=== PATIENT | female | born 1990 | race Caucasian/White ===

== ENCOUNTER → 2020-05-26 | Outpatient (CLI) | payer OTHER ==
[2020-05-26 16:17] LABS: BASO % 0.5 % (0.0-1.0); EOS % 0.5 % (0.0-3.0); HEMATOCRIT 37.1 % (36.0-47.0); LYMPH # 2.1 10^3/uL (1.5-5.0); LYMPH % 27.5 % (24.0-44.0); MEAN CORPUSCULAR HEMOGLOBIN 30.4 pg (27.0-33.0); MEAN CORPUSCULAR VOLUME 86.9 fl (80.0-96.0); MONO # 0.5 10^3/uL (0.0-0.8); MONO % 6.7 % (0.0-5.0); NEUTROPHILS # 4.9 10^3/uL (1.5-8.5); NEUTROPHILS % 64.4 % (36.0-66.0); PLATELET COUNT, AUTOMATED 251 10^3/uL (150-450); RED BLOOD COUNT 4.27 10^6/uL (4.00-5.40); WHITE BLOOD COUNT 7.6 10^3/uL (4.0-10.0)
[2020-05-26 17:31] LABS: HEPATITIS C VIRUS ABY INDEX 0.2 INDEX (<0.8); HIV 1&2 SCREEN CENTAUR NEGATIVE (NEGATIVE)
== END ==
LOC: M PLALAB 13:52
PROVIDERS: ATTEND Advanced Practice Midwife
DX: Z34.01 Encounter for supervision of normal first pregnancy, first trimester (principal)

== ENCOUNTER → 2020-06-15 | Outpatient (CLI) | payer OTHER ==
[2020-06-15 17:18] LABS: INR 1.07; PROTHROMBIN TIME 14.1 SECONDS (12.5-14.3)
[2020-06-15 17:19] LABS: PARTIAL THROMBOPLASTIN TIME 31.6 SECONDS (24.2-38.5)
== END ==
LOC: M PLALAB 15:29
PROVIDERS: ATTEND Advanced Practice Midwife
DX: O26.899 Other specified pregnancy related conditions, unspecified trimester (principal); Z3A.00 Weeks of gestation of pregnancy not specified; M25.50 Pain in unspecified joint

== ENCOUNTER → 2020-07-12 | Outpatient (REF) | payer BC ==
[2020-07-12 14:17] LABS: ALBUMIN 3.3 GM/DL (3.2-5.2); ALT/SGPT 23 U/L (12-78); BILIRUBIN,TOTAL 0.3 MG/DL (0.2-1.0); BLOOD UREA NITROGEN 7 MG/DL (7-18); C REACTIVE PROTEIN QUANTITATIV 0.95 MG/DL (0.00-0.30); CALCIUM LEVEL 8.9 MG/DL (8.5-10.1); CARBON DIOXIDE LEVEL 26 MEQ/L (21-32); CHLORIDE LEVEL 106 MEQ/L (98-107); CREATININE FOR GFR 0.58 MG/DL (0.55-1.30); GLOMERULAR FILTRATION RATE > 60.0 (>60); GLUCOSE, FASTING 78 MG/DL (70-100); POTASSIUM SERUM 4.1 MEQ/L (3.5-5.1); RHEUMATOID FACTOR QUANT < 10.0 IU/ML (<15.0); SODIUM LEVEL 136 MEQ/L (136-145); TOTAL PROTEIN 6.5 GM/DL (6.4-8.2)
[2020-07-17 14:08] LABS: HLA-B27 Negative (.)
== END ==
LOC: M PLALAB 11:37
PROVIDERS: ATTEND Obstetrics & Gynecology
DX: Z3A.14 14 weeks gestation of pregnancy (principal)

== ENCOUNTER → 2020-08-10 | Outpatient (CLI) | payer BC ==
--- NOTE | 2020-08-11 05:29 | REP ---
INDICATION: ANATOMY COMPARISON: None. TECHNIQUE: Transabdominal obstetrical ultrasound with color Doppler evaluation. FINDINGS: Examination demonstrates a single live intrauterine in breech presentation. motion is identified by technologist. Placenta is noted posterior and grade 1 without evidence for placenta previa or abruption. Amniotic fluid volume is normal. Cervix measures 3.2 cm in length and appears closed.. Gestational age by current measurements 19 weeks 2 days with NORAH 01/02/2021. FHR equals 134 beats per minute. BPD: 4.4 cm 19 weeks 2 days HC: 16.1 cm 18 weeks 6 days AC: 13.8 cm 19 weeks 1 day FL: 3.1 cm 19 weeks 4 days HL: 2.9 cm 19 weeks 2 days HC/AC: 1.17 Estimated weight 284 grams (63rdpercentile). Anatomical assessment demonstrates normal structures including cranium, choroid plexus, cavum, cerebellum/posterior fossa, facial features, lungs, four-chamber heart/ventricular outflow tracts, diaphragm, stomach, cord insertion/three-vessel cord, kidneys/bladder, spine, and extremities. IMPRESSION: Single live intrauterine in breech presentation. Anatomical assessment is complete and normal. <Electronically signed by Julio Hawkins > 08/11/20 [id number]
== END ==
LOC: M WHC 10:08
PROVIDERS: ATTEND Obstetrics & Gynecology
DX: O32.1XX0 Maternal care for breech presentation, not applicable or unspecified (principal); Z3A.19 19 weeks gestation of pregnancy

== ENCOUNTER → 2020-09-11 | Outpatient (REF) | payer BC ==
[2020-09-11 13:26] LABS: HEMATOCRIT 38.4 % (36.0-47.0); HEMOGLOBIN 12.8 g/dl (12.0-15.5); MEAN CORPUSCULAR HGB CONC 33.3 g/dl (32.0-36.5); MEAN CORPUSCULAR VOLUME 90.1 fl (80.0-96.0); PLATELET COUNT, AUTOMATED 248 10^3/uL (150-450); RED BLOOD COUNT 4.26 10^6/uL (4.00-5.40); WHITE BLOOD COUNT 8.7 10^3/uL (4.0-10.0)
== END ==
LOC: M PLALAB 08:19
PROVIDERS: ATTEND Obstetrics & Gynecology
DX: Z34.02 Encounter for supervision of normal first pregnancy, second trimester (principal)

== ENCOUNTER → 2020-12-12 | Outpatient (REF) | payer OTHER, BC | LOC: M SFHCWAGY 16:40 | PROVIDERS: ATTEND Specialist | DX: Z34.83 Encounter for supervision of other normal pregnancy, third trimester (principal) ==

== ENCOUNTER → 2020-12-28 | Outpatient (CLI) | payer OTHER, BC | LOC: M LABSMTC 10:55 | PROVIDERS: ATTEND Specialist | DX: Z20.822 Contact with and (suspected) exposure to COVID-19 (principal) ==

== ENCOUNTER → 2021-01-04 | Outpatient (CLI) | payer OTHER | LOC: M LABSMTC 10:57 | PROVIDERS: ATTEND Specialist | DX: Z11.52 Encounter for screening for COVID-19 (principal) ==

== ENCOUNTER 2021-01-11 11:36 | Inpatient (IN) | payer BC, OTHER ==
[~2021-01-11] VITALS: Ht 170.2 cm; Wt 97.0 kg
[2021-01-11] VITALS (18 sets, daily range): BP systolic 119–153; BP diastolic 68–89
[2021-01-11] MEDS ORDERED: LACTATED RINGER'S 1000 ML IV STA (11:53)
[2021-01-11] MEDS ORDERED: METHYLERGONOVINE MALEATE 0.2 MG/ML VIAL (J2210) IM PRN (11:55)
[2021-01-11] MEDS ORDERED: LR 1,000 ML IV SCH (11:55)
[2021-01-11] MEDS ORDERED: miSOPROStol 50MCG 1/2 TABLET PV ONE (12:30)
[2021-01-11 12:57] LABS: HEMATOCRIT 37.9 % (36.0-47.0); HEMOGLOBIN 12.7 g/dl (12.0-15.5); MEAN CORPUSCULAR HEMOGLOBIN 29.5 pg (27.0-33.0); MEAN CORPUSCULAR HGB CONC 33.5 g/dl (32.0-36.5); MEAN CORPUSCULAR VOLUME 87.9 fl (80.0-96.0); PLATELET COUNT, AUTOMATED 243 10^3/uL (150-450); RED BLOOD COUNT 4.31 10^6/uL (4.00-5.40)
[2021-01-11 13:22] LABS: ALBUMIN 2.7 GM/DL (3.2-5.2); ALT/SGPT 24 U/L (12-78); BILIRUBIN,TOTAL 0.3 MG/DL (0.2-1.0); BLOOD UREA NITROGEN 6 MG/DL (7-18); CALCIUM LEVEL 8.5 MG/DL (8.5-10.1); CARBON DIOXIDE LEVEL 23 MEQ/L (21-32); CHLORIDE LEVEL 109 MEQ/L (98-107); CREATININE FOR GFR 0.55 MG/DL (0.55-1.30); GLOMERULAR FILTRATION RATE > 60.0 (>60); GLUCOSE, FASTING 95 MG/DL (70-100); POTASSIUM SERUM 3.9 MEQ/L (3.5-5.1); SODIUM LEVEL 139 MEQ/L (136-145); TOTAL PROTEIN 5.9 GM/DL (6.4-8.2)
[2021-01-11 13:52] LABS: TOTAL PROTEIN,RANDOM URINE 19.2 MG/DL (0.0-12.0)
[2021-01-11] MEDS ORDERED: OXYTOCIN DRIP 30 UNITS in IV 1 EA IV SCH (16:25)
[2021-01-11] MEDS ORDERED: miSOPROStol 25MCG 1/4 TABLET PO SCH (16:30)
[2021-01-11] MEDS: LR 1,000 ML IV SCH (18:10)
[2021-01-12] VITALS (29 sets, daily range): BP systolic 119–167; BP diastolic 55–89
--- NOTE | 2021-01-12 02:37 | IPNPDOC ---
Text Note Date of Service The patient was seen on 01/12/21. NOTE Intrapartum Note Pt doing well, not feeling strong ctx though pitocin was halved recently for tachysystole. Mora bulb fell out fairly soon after placement and after the initial PV 50mcg dose of cytotec, we switched to the pitocin. Vitals wnl, afebrile SCE: 6/75/-2, AROM performed with clear fluid noted, well tolerated Cat I FHRT w/bl 125, +accels, -decels, mod bryanna [place]: ctx q1-3min Plan to continue to closely monitor Discussed pain management options with patient, she is undecided Will re-check in 4hr or sooner if indicated Safe to proceed Anita Cantor MD VS,Christianne, I+O VSChristianne, I+O Laboratory Tests 01/11/21 12:39 01/11/21 12:40 Vital Signs Date Time Temp Pulse Resp B/P (MAP) Pulse Ox O2 Delivery O2 Flow Rate FiO2 01/11/21 23:10 69 16 136/84 (101) 01/11/21 21:39 98.1 I&O- Last 24 Hours up to 6 AM 01/12/21 06:00 Intake Total 12 ml Output Total 200 ml Balance -188 ml Anita Cantor MD Jan 12, 2021 02:37
[2021-01-12] MEDS ORDERED: PROMETHAZINE INJ 25 MG/ML VIAL (J2550) IV PRN (02:50)
[2021-01-12] MEDS ORDERED: BUTORPHANOL 2 MG/ML INJ (J0595) IV PRN (02:50)
[2021-01-12] MEDS: LR 1,000 ML IV SCH ×4 (05:05→20:24)
--- NOTE | 2021-01-12 08:05 | IPNPDOC ---
Text Note Date of Service The patient was seen on 01/12/21. NOTE Progress Commenced pushing approximately 0640. FH 145, early decels, Cat I UC Q 4-5 minutes x 45-60 seconds Pitocin @ 4 mu. SVE C/C/ 0 station, caput. decends to +1 with push then retreats. Continue to observe. VS,Fishbone, I+O VS, Fishbone, I+O Laboratory Tests 01/11/21 12:39 01/11/21 12:40 Vital Signs Date Time Temp Pulse Resp B/P (MAP) Pulse Ox O2 Delivery O2 Flow Rate FiO2 01/12/21 05:30 69 18 144/84 (104) 01/12/21 05:01 97.9 I&O- Last 24 Hours up to 6 AM 01/12/21 06:00 Intake Total 912 ml Output Total 800 ml Balance 112 ml Hue Bernardo CNM Jan 12, 2021 08:05
--- NOTE | 2021-01-12 09:06 | IPNPDOC ---
Text Note Date of Service The patient was seen on 01/12/21. NOTE Progress Has been pushing approximately 2.5hrs. Becoming exhausted UC 2-6 minutes x 60 seconds Pitocin @ 6mu FH 145, early decels. Cat I SVE, essentially unchanged from last exam, descent to +1 but retreats to 0 Dr Lorenzo updated. VS,Fishbone, I+O VS, Fishbone, I+O Laboratory Tests 01/11/21 12:39 01/11/21 12:40 Vital Signs Date Time Temp Pulse Resp B/P (MAP) Pulse Ox O2 Delivery O2 Flow Rate FiO2 01/12/21 05:30 69 18 144/84 (104) 01/12/21 05:01 97.9 I&O- Last 24 Hours up to 6 AM 01/12/21 06:00 Intake Total 912 ml Output Total 800 ml Balance 112 ml Hue Bernardo CNM Jan 12, 2021 09:06
[2021-01-12] MEDS ORDERED: BICITRA 30ML SOLN UDC PO ONE (09:20)
[2021-01-12] MEDS ORDERED: AZITHROMYCIN INJ 500 MG, VIAL MATE ADAPTER 1 EACH in NS 250 ML IV ONE (09:20)
[2021-01-12] MEDS ORDERED: CLINDAMYCIN 900 MG in IV 1 EA IV ONE (09:20)
[2021-01-12] MEDS ORDERED: AZTREONAM 2 GM in D5W MINI-BAG PLUS 50 ML IV ONE (09:20)
[2021-01-12] MEDS ORDERED: ceFAZolin SOD 2 GM in IV 1 EA IV ONE (09:30)
[2021-01-12] MEDS ORDERED: OXYTOCIN 30 UNITS IN 0.9% NaCl 500ML IV BAG (J2590) As Ordered ONE (09:33)
[2021-01-12] MEDS ORDERED: MORPHINE PRES-FREE INJ 10 MG/10 ML VIAL (J2274) As Ordered ONE (09:33)
[2021-01-12] MEDS ORDERED: BUPIVACAINE HCL 0.25% 10ML VIAL As Ordered ONE (10:39)
[2021-01-12] MEDS ORDERED: BUPIVACAINE HCL 0.25% 10ML VIAL SC ONE (10:40)
[2021-01-12] MEDS ORDERED: KETAMINE HCL 200 MG/20 ML VIAL As Ordered ONE (10:45)
[2021-01-12] MEDS ORDERED: MIDAZOLAM INJ 2MG/2ML VIAL (J2250 PER 1MG) As Ordered ONE (10:54)
[2021-01-12] MEDS ORDERED: fentaNYL 100 MCG/2 ML INJECTION (J3010) As Ordered ONE (10:54)
[2021-01-12] MEDS ORDERED: propofoL 200 MG/20 ML VIAL As Ordered ONE (10:57)
[2021-01-12] MEDS ORDERED: SUCCINYLCHOLINE 100 MG/5 ML SYRINGE (J0330) As Ordered ONE (10:58)
[2021-01-12] MEDS ORDERED: LIDOCAINE 2% 100MG/5ML SDV (FOR ANES.) As Ordered ONE (10:58)
[2021-01-12] MEDS ORDERED: dexameTHASONE 4 MG/ML 1ML VIAL (J1100 PER 1MG) As Ordered ONE (11:13)
[2021-01-12] MEDS ORDERED: ONDANSETRON 4MG/2ML VIAL As Ordered ONE (11:13)
[2021-01-12] MEDS ORDERED: OXYTOCIN DRIP 30 UNITS in IV 1 EA IV SCH (11:40)
[2021-01-12] MEDS ORDERED: ONDANSETRON 4MG/2ML VIAL IV PRN ×2 (11:40→11:55)
[2021-01-12] MEDS ORDERED: ACETAMINOPHEN 500 MG TAB PO PRN (11:40)
[2021-01-12] MEDS ORDERED: RHOGAM 300 MCG (1500 IU) INJ (J2790) IM SCH (11:40)
[2021-01-12] MEDS ORDERED: PERCOCET 5MG/325MG TAB PO PRN (11:40)
[2021-01-12] MEDS ORDERED: MEASLES,MUMPS,RUBELLA VACCINE INJ (MMR-II) (90707) SC SCH (11:40)
[2021-01-12] MEDS ORDERED: KETOROLAC 30 MG/ML 1ML VIAL IV PRN (11:55)
[2021-01-12] MEDS ORDERED: oxyCODONE 5MG TAB PO PRN (11:55)
[2021-01-12] MEDS ORDERED: fentaNYL 100 MCG/2 ML INJECTION (J3010) IV PRN (11:55)
[2021-01-12] MEDS: KETOROLAC 30 MG/ML 1ML VIAL IV SCH ×2 (13:31→20:20)
--- NOTE | 2021-01-12 15:47 | ROOPDOC ---
[facility] Report Of Operation Report of Operation DATE OF PROCEDURE: 01/12/21 SURGEON: Sarah Lorenzo M.D. CAPTAIN/CHECK AIRMAN: Alirio Butterfield DO ( essential for tissue retractions, exposure and delivery of ) PROCEDURE: Primary section PREOPERATIVE DIAGNOSIS: 1.Arrest of descent POSTOPERATIVE DIAGNOSIS: 1.Arrest of descent ANESTHESIA: Spinal, converted to general ESTIMATED BLOOD LOSS: 500 mL URINE OUTPUT: 100 mL INTRAVENOUS FLUIDS:1200 mL of lactated Ringer's solution PREOPERATIVE ANTIBIOTICS:. 2 g of [id number] azithromycin OPERATIVE FINDINGS: Liveborn male infant, Apgars 9 and 9. SPECIMENS: None DESCRIPTION OF PROCEDURE: After informed consent was obtained and written consent was reviewed. The patient was brought to the operating room where spinal anesthesia was placed. She was then placed in the supine position with a left lateral tilt. Mora catheter was placed and to gravity. Patient was then prepped and draped in the normal sterile fashion. A timeout operating room was performed identifying the patient, procedure be performed as well as drug allergies. Anesthesia was tested and deemed to be adequate. Pfannenstiel skin incision was made and this was carried down to the underlying rectus fascia. The fascia was then scored and this incision was extended bilaterally. The fascia was then dissected off the underlying rectus muscle superiorly and inferiorly. At this point, patient became uncomfortable. Decision was made to convert to general anesthesia. After endotracheal anesthesia, the rectus muscles were then in the midline. The peritoneum is then entered. Vesicouterine per itoneum was then tented and excised and a bladder flap was created. Mobius retractor was then placed. Next, a curvilinear incision was then made in the lower uterine segment. The head was brought to the level of the incision atraumatically and delivered along the shoulders and corpus. The cord was clamped x2. The was brought over to the warmer with a good cry. Placenta was drained and delivered grossly intact. The uterus was cleared of all clots and debris and the uterine incision was then closed using 0 Vicryl in a running locking fashion followed by a second layer of 0 Vicryl in a running nonlocking fashion for imbrication. The abdomen suctioned. Surgical sites reinspected and noted be hemostatic. The retractor was then removed. The anterior peritoneum was then reapproximated with 3-0 Vicryl. The rectus muscles were reapproximated 3-0 Vicryl. The fascia was then closed using 0 Vicryl in a running nonlocking fashion. The subcutaneous tissues was then irrigated and suctioned. Subcutaneous tissue was reapproximated using 3-0 Vicryl. Several subdermal stitch is placed using 3-0 Vicryl and the skin was closed with 4-0 Monocryl and subcuticular fashion. This incision was then cleaned and dried and was dressed. The patient was then taken to recovery in stable condition. All counts were correct. The couple has decided to name the . My surgical specialist Dr. Butterfield played in an essential role during the operation. He assisted with tissue identification retraction, delivery of the , as well as wound closure. SARAH LORENZO MD. Jan 12, 2021 15:47
[2021-01-12] MEDS: DOCUSATE SODIUM 100MG CAPSULE PO SCH (20:20)
[2021-01-12] MEDS: SIMETHICONE 80MG CHEW TAB PO PRN (20:51)
[2021-01-13] MEDS: KETOROLAC 30 MG/ML 1ML VIAL IV SCH (01:30)
[2021-01-13 02:33] VITALS: BP 119/67
[2021-01-13] MEDS: LR 1,000 ML IV SCH (04:17)
[2021-01-13 06:24] VITALS: BP 123/69
--- NOTE | 2021-01-13 07:30 | IPNPDOC ---
Text Note Date of Service The patient was seen on 01/13/21. NOTE PO #1 Feels well. Adequate pain management. Mora out, due to void. VSS, afebrile, normotensive Breasts soft, nipples intact Dressing dry, intact Fundus firm Lochia rubra light without odor PO #1 Routine care. Anticipate D/C in am VS,Fishbone, I+O VS, Fishbone, I+O Vital Signs Date Time Temp Pulse Resp B/P (MAP) Pulse Ox O2 Delivery O2 Flow Rate FiO2 01/13/21 06:24 98.0 87 18 123/69 (87) 100 01/12/21 12:08 Room Air 01/12/21 11:53 2.0 I&O- Last 24 Hours up to 6 AM 01/13/21 06:00 Intake Total 3730 ml Output Total 2825 ml Balance 905 ml Hue Bernardo CNM Jan 13, 2021 07:30
[2021-01-13 09:12] LABS: HEMATOCRIT 27.2 % (36.0-47.0); MEAN CORPUSCULAR HEMOGLOBIN 30.2 pg (27.0-33.0); MEAN CORPUSCULAR HGB CONC 33.5 g/dl (32.0-36.5); MEAN CORPUSCULAR VOLUME 90.4 fl (80.0-96.0); PLATELET COUNT, AUTOMATED 234 10^3/uL (150-450); RED BLOOD COUNT 3.01 10^6/uL (4.00-5.40); WHITE BLOOD COUNT 17.8 10^3/uL (4.0-10.0)
[2021-01-13 09:13] LABS: HEMOGLOBIN 9.1 g/dl (12.0-15.5)
[2021-01-13] MEDS: PRENATAL VITAMINS CHEWABLE TABLET PO SCH (09:43)
[2021-01-13] MEDS: DOCUSATE SODIUM 100MG CAPSULE PO SCH ×2 (09:43→21:08)
[2021-01-13] MEDS: IBUPROFEN 800 MG TAB PO SCH ×2 (09:43→17:28)
[2021-01-13 09:54] VITALS: BP 116/60
[2021-01-13 14:00] VITALS: BP_SYST 116; BP_SYST 129; BP_DIAS 57; BP_DIAS 76
[2021-01-13] MEDS: SIMETHICONE 80MG CHEW TAB PO PRN (15:36)
[2021-01-13 17:59] VITALS: BP 133/72
[2021-01-13] MEDS: PERCOCET 5MG/325MG TAB PO PRN (21:47)
[2021-01-13 22:00] VITALS: BP 133/76
[2021-01-14] MEDS: IBUPROFEN 800 MG TAB PO SCH ×2 (00:52→08:42)
[2021-01-14 02:00] VITALS: BP 130/75
[2021-01-14 06:15] VITALS: BP 136/78
[2021-01-14] MEDS: PRENATAL VITAMINS CHEWABLE TABLET PO SCH (08:42)
[2021-01-14] MEDS: SIMETHICONE 80MG CHEW TAB PO PRN (08:42)
[2021-01-14] MEDS: DOCUSATE SODIUM 100MG CAPSULE PO SCH (08:42)
[2021-01-14] MEDS: PERCOCET 5MG/325MG TAB PO PRN ×2 (09:53→13:59)
--- NOTE | 2021-01-14 13:01 | DS.PDOC ---
Discharge Summary General Date of Admission Jan 11, 2021 at 11:36 Date of Discharge 01/15/2021 Attending Physician: THAI NUNO MD. Discharge Summary PROCEDURES PERFORMED DURING STAY: 1. section 2. Spinal anesthesia. 3. General anesthesia ADMITTING DIAGNOSES: 1. Induction of labor DISCHARGE DIAGNOSES: 1. Arrest descent COMPLICATIONS/CHIEF COMPLAINT: Induction of labor. HISTORY OF PRESENT ILLNESS: 30-year-old 1 presented for induction of labor. She progressed and pushed for approximately 3 hours with minimal descent. Patient was at -1 station counseled for section secondary to arrest descent. Patient initially had spinal anesthesia for her section. This was converted to general anesthesia secondary to discomfort during the surgery. Otherwise surgery was unremarkable, estimated blood loss was 500 mL's. Patient did well postoperatively and by postoperative day #2 had met all discharge criteria is as discharged home in stable condition. DISCHARGE MEDICATIONS: Please see below. ALLERGIES: Please see below. PHYSICAL EXAMINATION ON DISCHARGE: VITAL SIGNS: Please see below. GENERAL: Well-appearing no acute distress ABDOMINAL EXAMINATION: Abdomen soft, appropriately tender. Incision was dressed. NEUROLOGICAL EXAMINATION: Grossly intact ACTIVITY: As tolerated. DIET: Regular DISCHARGE PLAN: Home DISCHARGE INSTRUCTIONS: 1. Remove dressing in 5-7 days. 2. Reports severe pain heavy vaginal bleeding fever or incisional issues 3. Follow-up in 2 weeks. DISCHARGE CONDITION: Stable. Vital Signs/I&Os Vital Signs Date Time Temp Pulse Resp B/P (MAP) Pulse Ox O2 Delivery O2 Flow Rate FiO2 01/14/21 10:23 18 01/14/21 06:15 99.0 88 136/78 (97) 100 Room Air 01/12/21 11:53 2.0 I&O- Last 24 Hours up to 6 AM 01/14/21 06:00 Intake Total 1200 ml Output Total 300 ml Balance 900 ml Discharge Medications Scheduled Ibuprofen (Ibuprofen) 800 Mg Tablet, 800 MG PO Q8H Scheduled PRN Oxycodone/Acetaminophen (Oxycodone-Acetaminophen 5-325) 1 Each Tablet, 1-2 TAB PO Q6H PRN for SEVERE PAIN (PS 8-10) Allergies Coded Allergies: cefprozil (Verified Allergy, Severe, DIFFICULTY BREATHING, 01/11/21) nitrofurantoin (Verified Allergy, Severe, DIFFICULTY BREATHING, 01/11/21) THAI NUNO MD. Jan 14, 2021 13:01
[2021-01-14] MEDS ORDERED: IBUP80TA PO (15:14)
[2021-01-14] MEDS ORDERED: PERCOCET PO (15:14)
== END 2021-01-14 15:00 | disposition home or self-care (01) | DRG 540 ==
LOC: M LDI 11:36 → M OBS 01-12 12:44 → UNDODISIN 01-14 14:38
PROVIDERS: ADMIT Obstetrics & Gynecology; ATTEND Obstetrics & Gynecology
PROC: 3E033VJ Introduction of Other Hormone into Peripheral Vein, Percutaneous Approach (ICD-10-PCS; 2021-01-11)
PROC: 10D00Z1 Extraction of Products of Conception, Low, Open Approach (ICD-10-PCS; principal; 2021-01-12 11:48)
DX: O32.4XX0 Maternal care for high head at term, not applicable or unspecified (principal); Z37.0 Single live birth; Z3A.39 39 weeks gestation of pregnancy

== ENCOUNTER → 2021-05-15 | Outpatient (REF) | payer BC, OTHER ==
[~2021-05-15] MED LIST: IBUP80TA PO; PERCOCET PO
== END ==
LOC: M SFHCWAGY 19:21
PROVIDERS: ATTEND Advanced Practice Midwife
DX: Z12.4 Encounter for screening for malignant neoplasm of cervix (principal)
CPT/HCPCS: 87624; G0123